=== PATIENT | female | born 1995 | race Caucasian/White ===

== ENCOUNTER 2017-02-09 11:07 | Emergency (ER) | payer OTHER ==
[~2017-02-09] VITALS: Ht 157.5 cm; Wt 63.5 kg
[2017-02-09 11:42] LABS: BASO % 1 % (0-3); EOS # 0.1 x10^3/uL (0.0-0.7); EOS % 1 % (0-3); HEMATOCRIT 43.9 % (36.0-47.0); HEMOGLOBIN 15.2 g/dL (12.0-15.5); LYMPH % 34 % (24-48); MEAN CORPUSCULAR HEMOGLOBIN 31 pg (25-35); MEAN CORPUSCULAR HGB CONC 35 g/dL (31-37); MEAN CORPUSCULAR VOLUME 88 fL (79-100); MONO # 0.4 x10^3/uL (0.0-1.1); MONO % 5 % (0-9); NEUT # 5.4 x10^3uL (1.8-7.7); NEUT % 60 % (31-73); PLATELET COUNT 235 x10^3/uL (140-400); RED BLOOD COUNT 4.97 x10^6/uL (3.50-5.40); RED CELL DISTRIBUTION WIDTH 12.7 % (11.5-14.5)
[2017-02-09 11:49] LABS: PREG TEST PT QUAL POSITIVE (NEG)
[2017-02-09 13:46] VITALS: BP 114/65
--- NOTE | 2017-02-09 13:54 | PHYS DOC ---
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 Patient states she did have a miscarriage in September 2015. At that time she had had vaginal bleeding and had a miscarriage before she ever knew she was . She did have a positive test yesterday. Today, she has noticed some spotting, no heavy bleeding. She has not yet had a chance to make a new OB appointment. She denies any pain whatsoever. No cramping, no pelvic pain. Review of Systems Review of Systems Constitutional: Denies fever or chills [] GI: Denies abdominal pain, nausea, vomiting : Denies dysuria or hematuria [] Allergies Allergies Allergies Coded Allergies Type Severity Reaction Last Updated Verified No Known Drug Allergies 02/09/17 No Physical Exam Physical Exam Constitutional: Well developed, well nourished, no acute distress, non-toxic appearance. [] HENT: Normocephalic, atraumatic, bilateral external ears normal, nose normal. [ ] Eyes: conjunctiva normal, no discharge. [] Neck: Normal range of motion, no stridor. [] Skin: Warm, dry, no erythema, no rash. [] Extremities: No tenderness, no cyanosis, no clubbing, ROM intact, no edema. [] Neurologic: Alert and oriented X 3, normal motor function, no focal deficits noted. [] Current Patient Data Vital Signs Vital Signs Date Time Temp Pulse Resp B/P (MAP) Pulse Ox O2 Delivery O2 Flow Rate FiO2 02/09/17 13:16 98.6 76 16 126/67 (86) 100 Room Air Lab Results Laboratory Tests Test 02/09/17 11:27 White Blood Count 9.0 x10^3/uL (4.0-11.0) Red Blood Count 4.97 x10^6/uL (3.50-5.40) Hemoglobin 15.2 g/dL (12.0-15.5) Hematocrit 43.9 % (36.0-47.0) Mean Corpuscular Volume 88 fL (79-100) Mean Corpuscular Hemoglobin 31 pg (25-35) Mean Corpuscular Hemoglobin Concent 35 g/dL (31-37) Red Cell Distribution Width 12.7 % (11.5-14.5) Platelet Count 235 x10^3/uL (140-400) Neutrophils (%) (Auto) 60 % (31-73) Lymphocytes (%) (Auto) 34 % (24-48) Monocytes (%) (Auto) 5 % (0-9) Eosinophils (%) (Auto) 1 % (0-3) Basophils (%) (Auto) 1 % (0-3) Neutrophils # (Auto) 5.4 x10^3uL (1.8-7.7) Lymphocytes # (Auto) 3.0 x10^3/uL (1.0-4.8) Monocytes # (Auto) 0.4 x10^3/uL (0.0-1.1) Eosinophils # (Auto) 0.1 x10^3/uL (0.0-0.7) Basophils # (Auto) 0.0 x10^3/uL (0.0-0.2) Maternal Serum HCG Beta Subunit 66768 mIU/mL (0-6) H Serum Test, Qualitative Positive (NEG) EKG EKG [] Radiology/Procedures Radiology/Procedures OB ultrasound read by the radiologist. Gestational sac in the uterus with heart activity with gestational age of 8 weeks. No abnormalities noted, no free fluid in the pelvis, no subchorionic hemorrhage. [] Course & Med Decision Making Course & Med Decision Making Pertinent Labs and Imaging studies reviewed. (See chart for details) 21-year-old female with positive test and vaginal spotting. Her ultrasound shows an intrauterine with positive cardiac activity and no abnormal findings, 8 weeks 0 days. Blood type is B+. I discussed the diagnosis with the patient. Threatened AB, however she does have a positive intrauterine with positive heart tones. I stressed the importance of OB follow-up. She will be making arrangements to do so. [] Dragon Disclaimer Dragon Disclaimer This chart was dictated in whole or in part using Voice Recognition software in a busy, high-work load, and often noisy Emergency Department environment. It may contain unintended and wholly unrecognized errors or omissions. Departure Departure: Impression: Primary Impression: Threatened miscarriage in early Additional Impression: 8 weeks gestation of Disposition: HOME, SELF-CARE Condition: STABLE Referrals: RAFI ALVAREZ DO, [facility] (PCP) Patient Instructions: Threatened Miscarriage, [id number] Additional Instructions: Call the post medical clinic to let them know you are and need referral to an OB doctor. Pelvic rest, see instructions. Today, ultrasound showed that you are 8 weeks with a due date in early September. Problem Qualifiers LILY CASTRO MD Feb 09, 2017 13:54
--- NOTE | 2017-02-09 14:14 | RAD ---
Obstetrical ultrasound, 02/09/2017: History: Vaginal bleeding Transabdominal and transvaginal scans were obtained. The uterus contains a single gestational sac. The gestational sac contains a pole demonstrating a crown-rump length of 1.6 cm. This is compatible with a gestational age of 8 weeks yielding a sonographic EDC of 09/21/2017. activity and heart motion were seen. The heart rate is 169 bpm. There is no evidence of subchorionic hemorrhage. The ovaries are of normal size. Small follicular cysts are present in the ovaries. No free fluid is evident in the pelvis. IMPRESSION: Single viable intrauterine fetus of 8 weeks gestational age.
== END 2017-02-09 14:14 | disposition home or self-care (01) ==
LOC: ER 11:07
DX: O20.0 Threatened abortion (principal); Z3A.08 8 weeks gestation of pregnancy
CPT/HCPCS: 36415; 76801; 84702; 84703; 85025; 86900; 86901; 99285-25

== ENCOUNTER 2017-03-02 12:20 | Emergency (ER) | payer OTHER ==
[~2017-03-02] VITALS: Ht 157.5 cm; Wt 68.9 kg
[2017-03-02 12:48] VITALS: BP 119/62
[2017-03-02] MEDS ORDERED: MUPI22OI2 TP (12:58)
--- NOTE | 2017-03-02 12:58 | PHYS DOC ---
Past History Past Medical History: No Pertinent History Past Surgical History: No Surgical History Alcohol Use: None Drug Use: None Adult General Chief Complaint Chief Complaint: INSECT BITE HPI HPI Patient is a 21 year old F who presents with insect bite on the right thigh approximately 2 days ago. She describes itchy red and mildly swollen. She feels like in the past 24 hours redness has expanded mildly. She has no other notable symptoms Review of Systems Review of Systems Constitutional: Denies fever or chills [] Eyes: Denies change in visual acuity, redness, or eye pain [] HENT: Denies nasal congestion or sore throat [] Respiratory: Denies cough or shortness of breath [] Cardiovascular: No additional information not addressed in HPI [] GI: Denies abdominal pain, nausea, vomiting, bloody stools or diarrhea [] : Denies dysuria or hematuria [] Musculoskeletal: Denies back pain or joint pain [] Integument: Negative except history of present illness Neurologic: Denies headache, focal weakness or sensory changes [] Endocrine: Denies polyuria or polydipsia [] Family History Family History Noncontributory Allergies Allergies Allergies Coded Allergies Type Severity Reaction Last Updated Verified No Known Drug Allergies 02/09/17 No Physical Exam Physical Exam Constitutional: Well developed, well nourished, no acute distress, non-toxic appearance. [] HENT: Normocephalic, atraumatic, bilateral external ears normal, oropharynx moist, no oral exudates, nose normal. [] Eyes: PERRLA, EOMI, conjunctiva normal, no discharge. [] Neck: Normal range of motion, no tenderness, supple, no stridor. [] Cardiovascular:Heart rate regular rhythm, no murmur [] Lungs & Thorax: Bilateral breath sounds clear to auscultation [] Abdomen: Bowel sounds normal, soft, no tenderness, no masses, no pulsatile masses. [] Skin: Warm, dry, no erythema, no rash. [] Right anterior mid thigh insect bite with approximately 2 cm of erythema. No induration. No obvious signs of infection Back: No tenderness, no CVA tenderness. [] Extremities: No tenderness, no cyanosis, no clubbing, ROM intact, no edema. [] Neurologic: Alert and oriented X 3, normal motor function, normal sensory function, no focal deficits noted. [] Psychologic: Affect normal, judgement normal, mood normal. [] Current Patient Data Vital Signs Normal vital signs. Please review nursing documentation for specifics EKG EKG [] Radiology/Procedures Radiology/Procedures [] Course & Med Decision Making Course & Med Decision Making Pertinent Labs and Imaging studies reviewed. (See chart for details) [] Dragon Disclaimer Dragon Disclaimer This chart was dictated in whole or in part using Voice Recognition software in a busy, high-work load, and often noisy Emergency Department environment. It may contain unintended and wholly unrecognized errors or omissions. Departure Departure: Impression: Primary Impression: Insect bite Disposition: HOME, SELF-CARE Condition: STABLE Referrals: RAFI ALVAREZ DO, [facility] (PCP) Patient Instructions: Insect Bite Additional Instructions: Brennon was seen in the emergency room for an insect bite. No emergency medical condition was found on history or physical exam. She was given a topical antibiotic to start if her symptoms worsen. She was also advised follow-up with her primary care doctor and/or return to the emergency room if she develops new or worsening symptoms. Scripts Mupirocin (MUPIROCIN) 22 Gm Oint...g. 1 DURGA TP TID for 7 Days, #22 GM Prov: GEORGE ROMERO MD 03/02/17 Problem Qualifiers Primary Impression: Insect bite Encounter type: initial encounter Qualified Codes: W57.XXXA - Bitten or stung by nonvenomous insect and other nonvenomous arthropods, initial encounter GEORGE ROMERO MD Mar 02, 2017 12:58
== END 2017-03-02 13:03 | disposition home or self-care (01) ==
LOC: ER 12:20
DX: S70.361A Insect bite (nonvenomous), right thigh, initial encounter (principal); W57.XXXA Bitten or stung by nonvenomous insect and other nonvenomous arthropods, initial encounter; Y93.89 Activity, other specified; Y99.8 Other external cause status; Y92.89 Other specified places as the place of occurrence of the external cause
CPT/HCPCS: 99283